=== PATIENT | female | born 1945 | race Caucasian/White ===

== ENCOUNTER → 2023-12-09 10:40 | Outpatient (REF) | payer OTHER, SELFPAY ==
[2023-12-09 12:51] LABS: Free T4 1.75 ng/dl (0.78-2.19)
== END ==
LOC: RAD 10:40
PROVIDERS: ATTENDING PHYSICIAN Nurse Practitioner Family; FAMILY PHYSICIAN Family Medicine
DX: M81.0 Age-related osteoporosis without current pathological fracture (principal); E03.8 Other specified hypothyroidism; E06.3 Autoimmune thyroiditis
CPT/HCPCS: 36415; 77080; 84439; 84443